=== PATIENT | male | born 1970 | race Caucasian/White ===

== ENCOUNTER → 2017-07-02 | Outpatient (CLI) | payer MEDICAID ==
[~2017-07-02] MED LIST: AMITRIPTYLINE 225 MG PO; AMLODIPINE5 M1 PO; GABAPENTIN100 M1 PO; LORCET PLUS PO; LORTAB 500 MG-71 TAB PO; MOTRIN600 MG PO; NORCO1 TAB PO
[2017-07-02 19:56] LABS: AMPHETAMINES/METAMPHETAMINES NEGATIVE ng/mL (<1000)
[2017-07-09 05:38] LABS: Codeine Negative (Cutoff=100); Hydrocodone Positive (.); Hydromorphone Negative (Cutoff=100); Morphine Negative (Cutoff=100); Opiates Positive (.)
== END ==
LOC: LAB 17:12
PROVIDERS: Emergency Medicine
DX: Z79.899 Other long term (current) drug therapy (principal)

== ENCOUNTER → 2017-07-31 | Outpatient (CLI) | payer MEDICAID ==
[2017-07-31 20:05] LABS: AMPHETAMINES/METAMPHETAMINES NEGATIVE ng/mL (<1000)
== END ==
LOC: LAB 18:31
PROVIDERS: Emergency Medicine
DX: Z79.899 Other long term (current) drug therapy (principal)

== ENCOUNTER 2017-08-20 18:50 | Emergency (ER) | payer MEDICAID ==
[~2017-08-20] VITALS: Ht 182.9 cm; Wt 125.2 kg
[~2017-08-20 18:50] MED LIST changes: +NORCO 325 MG-51 TAB PO
--- OUTSIDE RECORDS SUMMARY | 2017-08-20 19:00 | External Medical Summary Rpt | CCD ---
Demographics Preferred Language Taiwanese Marital Status Unknown Christian Affiliation Unknown Race Unknown Ethnic Group Unknown Author Author , MARINA Organization MARINA Address Unknown Phone [email or web address] Immunization Name Date Rout CVX Reac Dose Comm Prov Is Faci e tion ent ider Refu lity Give sed n Tdap 02-1 115 0.5 Hist [facility] No [facility] , 7-20 mL oric 1 1 Adso 17 al rbed Info rmat ion - Sour ce Unsp ecif ied Td 03-1 9 999 Hist H149 No H149 (alyse 0-19 oric lt), 97 al Info adso rmat rbed ion - Sour ce Unsp ecif ied
--- OUTSIDE RECORDS SUMMARY | 2017-08-20 19:00 | External Medical Summary Rpt | CCD ---
Author Author , MARINA Organization MARINA Address Unknown Phone [email or web address] Purpose Continuity of Care Document - 07-02-2017 through 2016 Results Labs Lab Lab Date Result Refere Interp Status Commen Order Detail nces retati t Range on Urine 9-analyte drugs of abuse screening (07-31-2017 14:50) Comment: Positive urine drug screen samples are stored for 7 days. Comment: Contact the Lab if confirmation of positives is needed. 11- NEGATIV <50 complet oxy 017 E ed delta-9 14:50 NEGATIV E L tetrahy ng/mL drocann abinol Phencyc = <25 complet lidine 017 NEGATIV ed measure 14:50 E ng/mL ment (mass/v olume) Opiates = <300 complet 017 POSITIV ed measure 14:50 E ng/mL ment (mass/v olume) Comment: This is an UNCONFIRMED result. This result is for medical Comment: purposes and/or treatment only. Methado = <300 complet ne 017 NEGATIV ed measure 14:50 E ng/mL ment (mass/v olume) Cocaine = <300 complet 017 NEGATIV ed measure 14:50 E ng/g ment (mass/v olume) Serum = 200 complet or 017 NEGATIV ng/mL ed plasma 14:50 E ng/mL benzodi azepine s measure m Urine = <200 complet barbitu 017 NEGATIV ed rates 14:50 E ng/mL measure ment by screen Urine NEGATIV <1000 complet ampheta 017 E ed mine 14:50 NEGATIV screeni E L ng test ng/mL Drugs identified in Urine by Screen method (07-31-2017 14:50) Ampheta NEGATIV <1000 complet mine 017 E ed [Presen 14:50 ce] in Urine by Screen method 11-Hydr NEGATIV <50 complet oxy 017 E ed delta-9 14:50 tetrahy drocann abinol [Presen ce] in Unspeci fied specime n Drugs identified in Urine by Screen method (07-02-2017 14:00) Ampheta NEGATIV <1000 complet mine 017 E ed [Presen 14:00 ce] in Urine by Screen method 11-Hydr NEGATIV <50 complet oxy 017 E ed delta-9 14:00 tetrahy drocann abinol [Presen ce] in Unspeci fied specime n
--- OUTSIDE RECORDS SUMMARY | 2017-08-20 19:00 | External Medical Summary Rpt | CCD ---
Demographics Preferred Language Prydeinig Marital Status Unknown Druze Affiliation Unknown Race Unknown Ethnic Group Unknown Author Author MARINA Address Unknown Phone [email or web address] Purpose Continuity of Care Document - through 2016
--- OUTSIDE RECORDS SUMMARY | 2017-08-20 19:00 | External Medical Summary Rpt | CCD ---
Demographics Preferred Language Russian Marital Status Unknown Rastafarian Affiliation Unknown Race Unknown Ethnic Group Unknown Author Author , MARINA Organization MARINA Address Unknown Phone [email or web address] Immunization Name Date Rout CVX Reac Dose [...]
--- OUTSIDE RECORDS SUMMARY | 2017-08-20 19:00 | External Medical Summary Rpt ---
Author Author MARINA Hinds, MARINA Production Organization MARINA [employer] Address Unknown Phone Unavailable Results Drugs identified in Urine by Screen method Observa Value Referen Units Interpr Notes Date tion ce etation Range Positive urine drug screen samples are stored for 7 days. Contact the Lab if confirmation of positives is needed. Ampheta NEGATIV <1000 ng/mL No No Jul 31 mine E informa informa 2016 [Presen tion in tion in 2:50 PM ce] in source source Urine data data by Screen method Barbitura <200 ng/mL No No Jul 31 arun informati informati 2017 2:50 [Mass/vol on in on in PM ume] in source source Urine by data data Screen method Benzodiaz 200 ng/mL ng/mL No No Jul 31 epines informati informati 2017 2:50 [Mass/vol on in on in PM ume] in source source Serum or data data Plasma by Screen method Cocaine <300 ng/g No No Jul 31 [Mass/vol informati informati 2016 2:50 ume] in on in on in PM Unspecifi source source ed data data specimen Methadone <300 ng/mL No No Jul 31 informati informati 2016 2:50 [Mass/vol on in on in PM ume] in source source Unspecifi data data ed specimen Opiates <300 ng/mL High This is Jul 31 [Mass/vol an 2017 2:50 ume] in UNCONFIRM PM Unspecifi ED ed result. specimen This result is for medicalpu rposes and/or treatment only. Phencycli <25 ng/mL No No Jul 31 dine informati informati 2017 2:50 [Mass/vol on in on in PM ume] in source source Unspecifi data data ed specimen 11-Hydr NEGATIV <50 ng/mL No No Jul 31 oxy E informa informa 2017 delta-9 tion in tion in 2:50 PM source source tetrahy data data drocann abinol [Presen ce] in Unspeci fied specime n Opiates and Oxycodone(GC/MS),U Observa Value Referen Units Interpr Notes Date tion ce etation Range Hydroco 160 Cutoff= ng/mL No No Sep 18 done 100 informa informa 2017 GC/MS, tion in tion in 2:00 PM Urine source source data data Oxycodo Negativ Cutoff= No No Test Sep 18 ne/Oxym e 100 informa informa include 2017 orph tion in tion in s 2:00 PM source source Oxycodo data data ne and [employer] honePer formed at: - [facility] [id number] [facility], [place], [place] [id number] Directo r: Markus Jones MD, Phone: [phone] Codeine Negativ Cutoff= No No No Sep 18 e 100 informa informa informa 2017 tion in tion in tion in 2:00 PM source source source data data data Morphin Negativ Cutoff= No No No Sep 18 e e 100 informa informa informa 2017 tion in tion in tion in 2:00 PM source source source data data data Hydromo Negativ Cutoff= No No No Sep 18 rphone e 100 informa informa informa 2017 tion in tion in tion in 2:00 PM source source source data data data Hydroco Positiv . No Abnorma No Sep 18 done e informa l informa 2017 tion in tion in 2:00 PM source source data data Opiates Positiv . No Abnorma Opiate Sep 18 e informa l test 2017 tion in include 2:00 PM source s data Codeine , Morphin e, Hydromo rphone, Hydroco done. Drugs identified in Urine by Screen method Observa Value Referen Units Interpr Notes Date tion ce etation Range Positive urine drug screen samples are stored for 7 days. Contact the Lab if confirmation of positives is needed. Ampheta NEGATIV <1000 ng/mL No No Sep 18 mine E informa informa 2017 [Presen tion in tion in 2:00 PM ce] in source source Urine data data by Screen method Barbitura <200 ng/mL No No Sep 18 arun informati informati 2017 2:00 [Mass/vol on in on in PM ume] in source source Urine by data data Screen method Benzodiaz 200 ng/mL ng/mL No No Sep 18 epines informati informati 2017 2:00 [Mass/vol on in on in PM ume] in source source Serum or data data Plasma by Screen method Cocaine <300 ng/g No No Sep 18 [Mass/vol informati informati 2017 2:00 ume] in on in on in PM Unspecifi source source ed data data specimen Methadone <300 ng/mL No No Sep 18 informati informati 2017 2:00 [Mass/vol on in on in PM ume] in source source Unspecifi data data ed specimen Opiates <300 ng/mL No No Sep 18 [Mass/vol informati informati 2017 2:00 ume] in on in on in PM Unspecifi source source ed data data specimen Phencycli <25 ng/mL No No Sep 18 dine informati informati 2017 2:00 [Mass/vol on in on in PM ume] in source source Unspecifi data data ed specimen 11-Hydr NEGATIV <50 ng/mL No No Sep 18 oxy E informa informa 2017 delta-9 tion in tion in 2:00 PM source source tetrahy data data drocann abinol [Presen ce] in Unspeci fied specime n
--- OUTSIDE RECORDS SUMMARY | 2017-08-20 19:00 | External Medical Summary Rpt | CCD ---
Author Author , MARINA Organization MARINA Address Unknown Phone [email or web address] Purpose Continuity of Care Document - 07-02-2017 [...]
--- OUTSIDE RECORDS SUMMARY | 2017-08-20 19:00 | External Medical Summary Rpt ---
[...] [employer] honePer formed at: - [facility] [id number] [facility], [place], [place] [id number]Lab Directo r: Markus Jones MD, Phone: [phone] Codeine Negativ Cutoff= No No No Sep [...]
--- OUTSIDE RECORDS SUMMARY | 2017-08-20 19:00 | External Medical Summary Rpt | CCD ---
Demographics Preferred Language Libyan Marital Status Unknown Latter-Day Affiliation Unknown Race Unknown Ethnic Group Unknown Author Author MARINA Address Unknown Phone [email or web address] Purpose Continuity of Care Document - through 2016
--- NOTE | 2017-08-20 19:59 | Urgent Treatment Center Report ---
History of Present Issue Date/Time Seen by Provider 08/20/171958 Visit Reason Pt arrived:Walked Presenting Problem:PT C/O HEADACHE, BODY ACHE, HEAD AND CHEST CONGESTION, NAUSEA X5 DAYS. Location if Accident: Onset of symptoms date/time:/ or onset unknown for:MEDICAL HX UNKNOWN Have you (or family members/close friends) recently traveled outside the [place]? N If Yes, where/when: Have you had exposure to infectious disease within the past month? TB? Other? Specify: Here w/ spouse, same symptoms. Started w/ rhinorrhea and sore throat 4-5 days ago. Feeling feverish (hot/chills) intermittently since onset accompanied w/ bodyaches. Last 2-3 days, symptoms worse in chest. Nonprod cough worse w/ exertion, mild SOA at times and unsure about wheezing. + tobacco abuse. No treatment prior to arrival. requesting "please give me a shot tonight. I need to feel better." Source patient Exam Limitations no limitations ALLERGIES Coded Allergies: No Known Drug Allergies (03/14/16) Home Medications Reported Medications Amlodipine Besylate (Amlodipine) 5 MG PO DAILY Amitriptyline Hcl (Amitriptyline) 25 MG PO QHS HYDROCODONE/ACETAMINOPHEN ([place] 5-325 Tablet) 1 TAB PO TIDP PRN PAIN History Medical History General CAD? No Angina: No NM: No Hypertension? Yes Hyperlipidemia? No CHF? No DVT? No PE? No COPD? No Asthma? No Anemia? No GERD? No Gastric ulcers? No GI Bleed? No Hernia? No Thyroid Problems? No Hypothyroidism? No CVA? No Seizures? No Diabetes? No Renal Insuffiency? No UTI? No Stones? No BPH? No GB Disease: No Nephritic Syndrome? No Asplenia? No Hepatitis? No Sickle Cell Disease? No Arthritis? No Migraines? No Cataracts? No Glaucoma? No MRSA? No HIV? No TB? No Anxiety? No Depression? No Cancer? No More? No Immunization HX DT/Tetanus > 10 YRS Surgical Hx Previous Surgery?Y NON CANCEROUS PLACE BACK BACK SURGERY 2013 Social History Smoking Hx Smoker: Current Every Day Smoker Tobacco: Yes Type Cigarettes Packs/day 1 1/2 - 2 Packs Alcohol Alcohol: Yes Review of Systems All Other Systems Reviewed and Negative Constitutional see HPI, denies weakness Eyes denies drainage ENT see HPI, nose congestion. denies: ear pain, throat pain. Respiratory see HPI Cardiovascular denies chest pain, denies palpitations Gastrointestinal denies no symptoms reported Musculoskeletal see HPI Skin denies rash Psychiatric/Neurological denies headache Physical Exam Vital Signs Vital Signs Date Time Temp Pulse Resp B/P Pulse O2 O2 Flow FiO2 Ox Delivery Rate 08/20 1928 98.8 68 20 149/93 96 General Appearance normal appearance, no apparent distress Ear, Nose, Throat normal ENT inspection (x/ mild nasal congestion) Neck non-tender, supple Respiratory Status Yes: trachea midline, chest symmetrical, non tender chest, non productive cough (worse with deep breathing). No: respiratory distress, use of accessory muscles , pain on inspiration, pain on expiration. Lung Sounds bilateral: rhonchi (apices), wheezing (apices, end expiratory). Cardiovascular regular rate/rhythm, no peripheral edema, no murmur Neurologic alert, oriented x 3 Mental status normal mood/affect Skin normal color, warm/dry Lymphatic no adenopathy Medical Decision Making LABS/Meds/Orders Pt receiving controlled substance in ED? No Results/Orders Laboratory Tests 08/20/171939: Influenza Type A Ag NOT DETECTED, Influenza Type B Ag NOT DETECTED Current Medication Orders Sig/Vlad Start time Last Medication Dose Route Stop Time Status Admin Azithromycin 0 .STK-MED ONE 08/20 2025 DC PO Methylprednisolone 0 .STK-MED ONE 08/20 2025 DC Sodium Succinate .ROUTE Azithromycin 500 MG ONCE ONE 08/20 2015 DC 08/20 PO 08/20 Methylprednisolone 125 MG ONCE ONE 08/20 2015 DC 08/20 Sodium Succinate IM 08/20 Orders Procedure Date/time Status [facility] FLU A,B 08/20 1940 Complete Departure Departure Time of Disposition 2044 Disposition DC Home or Self Care(routine) Clinical Impression Primary Impression: Acute bronchitis Qualifiers: Bronchitis organism: unspecified organism Qualified Code: J20.9 - Acute bronchitis, unspecified Secondary Impressions: Tobacco abuse Condition STABLE Referrals Key ROBERTSON,Markus Raza (Family) IMMEDIATELY for new or worsening symptoms OR no noticeable improvement over the next 48-72 hours. 911 for difficulty breathing. Patient Instructions DI for Acute Bronchitis, How to Quit Tobacco Products Additional Instructions * STOP SMOKING!!!! * start antibiotic tomorrow since you were given first dose here in clinic. Be sure to complete entire prescription even if feeling better. * Monitor Temp. Feeling feverish is not the same and having a fever. Tylenol every 4 hours as needed no more then 5 times a day or 4000mg in 24 hours and/or ibuprofen every 6 hours as needed no more then 3200mg in 24 hours (as long as your primary care doctor has told you that it is ok to take both) for fever/ aches/pain. ER if fever no less than 101 despite tylenol and ibuprofen * humidifier/vaporizer/hot steamy shower * Inhaler every 4-6 hours as needed like we discussed. If unsure how to use it, ask pharmacist to demonstrate how. Should help open airways and improve cough, wheezing, shortness of breath. * Mucinex during the day for your cough and cough suppressant only at night. Be sure to drink lots of water. Insurance may not cover a prescription of mucinex. Might be cheaper to get 400mg tablets and take 2 tablets morning, midday and evening all with lots of water. * Promethazine DM cough syrup will cause drowsiness. Use it only at night. No driving, operating machinery or caring for small children after taking it. * Start steroid Sunday morning since you received a steroid injection late . Helps with inflammation therefore, cough and wheezing. Follow directions on package. Rvwd side effects. Pt reports they have taken them before. Discharge Counseling Counseled pt/family regarding diagnosis, test results, medications/RX, home care, follow up needs Prescriptions Current Visit Scripts ALBUTEROL (Proventil Hfa Inhaler) 1-2 PUFF IH Q4-6H PRN PRN SOA, wheezing #1 CAN Azithromycin (Zithromycin (Z-MARYJANE) 250MG Tab) 250 MG PO DAILY #4 TAB first dose in clinic PROMETHAZINE/DEXTROMETHORPHAN (Promethazine-Dm Syrup) 5-10 ML PO QHSP PRN cough #120 ML will cause drowsiness Prednisone (Prednisone 20MG) 20 MG PO BID #10 TAB at 2040
[2017-08-20] MEDS ORDERED: ZITHROMAX Z PA250 MG PO (20:40)
[2017-08-20] MEDS ORDERED: PROVENTIL0.09 MG/A1 IH (20:40)
[2017-08-20] MEDS ORDERED: PROMETHAZINE D118 ML PO (20:40)
[2017-08-20] MEDS ORDERED: PREDNISONE 20MG20 MG PO (20:40)
[2017-08-20 20:46] VITALS: BP 149/93
== END 2017-08-20 20:46 | disposition home or self-care (01) ==
LOC: UTC 18:50
DX: J20.9 Acute bronchitis, unspecified (principal); F17.210 Nicotine dependence, cigarettes, uncomplicated; I10 Essential (primary) hypertension

== ENCOUNTER → 2017-08-29 | Outpatient (CLI) | payer MEDICAID ==
[~2017-08-29] MED LIST changes: +PREDNISONE 20MG20 MG PO; +PROMETHAZINE D118 ML PO; +PROVENTIL0.09 MG/A1 IH; +ZITHROMAX Z PA250 MG PO
[2017-08-29 18:34] LABS: AMPHETAMINES/METAMPHETAMINES NEGATIVE ng/mL (<1000)
== END ==
LOC: LAB 17:02
PROVIDERS: Emergency Medicine
DX: Z79.899 Other long term (current) drug therapy (principal)

== ENCOUNTER → 2017-08-31 | Day surgery (SDC) | payer MEDICAID ==
[~2017-08-31] VITALS: Ht 182.9 cm; Wt 124.3 kg
[2017-08-31] VITALS (11 sets, daily range): BP systolic 118–149; BP diastolic 71–101
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
== END ==
LOC: PM 08:14
PROC: 3E0R3BZ Introduction of Anesthetic Agent into Spinal Canal, Percutaneous Approach (ICD-10-PCS; principal; 2017-08-31)
PROC: B01B1ZZ Fluoroscopy of Spinal Cord using Low Osmolar Contrast (ICD-10-PCS; 2017-08-31)
DX: M96.1 Postlaminectomy syndrome, not elsewhere classified (principal); M54.16 Radiculopathy, lumbar region

== ENCOUNTER → 2017-09-26 | Outpatient (CLI) | payer MEDICAID ==
[~2017-09-26] MED LIST changes: +HYDROCODONE-APA1 TA2 PO
[2017-09-26 20:11] LABS: AMPHETAMINES/METAMPHETAMINES NEGATIVE ng/mL (<1000)
== END ==
LOC: LAB 16:57
PROVIDERS: Emergency Medicine
DX: Z79.899 Other long term (current) drug therapy (principal)